=== PATIENT | female | born 1975 | race Caucasian/White ===

== ENCOUNTER → 2016-07-05 | Outpatient (CLI) | payer OTHER | LOC: WI 09:32 | PROVIDERS: ATTEND Family Medicine | DX: Z12.31 Encounter for screening mammogram for malignant neoplasm of breast (principal) | CPT/HCPCS: 77063; G0202; 77067 ==

== ENCOUNTER → 2016-07-10 | Outpatient (CLI) | payer OTHER | LOC: WI 11:04 | PROVIDERS: ATTEND Family Medicine | DX: R92.0 Mammographic microcalcification found on diagnostic imaging of breast (principal) | CPT/HCPCS: G0204-52 ==

== ENCOUNTER → 2016-07-16 | Outpatient (CLI) | payer OTHER | LOC: RAD 07:26 | PROVIDERS: ATTEND Family Medicine | DX: R92.8 Other abnormal and inconclusive findings on diagnostic imaging of breast (principal) | CPT/HCPCS: A9576; C8906; 77059 ==

== ENCOUNTER → 2016-07-17 | Day surgery (SDC) | payer OTHER ==
[~2016-07-17] MED LIST: LIDOCAINE 1%/EPINEPHRINE INJ 20 ML VIAL ONE; LIDOCAINE 2% INJ (20 MG/ML) 20 ML MDV ONE
== END ==
LOC: RAD 11:17
PROVIDERS: ATTEND Family Medicine
PROC: 0HBT3ZX Excision of Right Breast, Percutaneous Approach, Diagnostic (ICD-10-PCS; principal; 2016-07-17)
DX: N64.1 Fat necrosis of breast (principal); N60.11 Diffuse cystic mastopathy of right breast; R92.0 Mammographic microcalcification found on diagnostic imaging of breast
CPT/HCPCS: 88305 ×2; 88342; 19081; J3490 ×2

== ENCOUNTER → 2017-09-25 | Outpatient (CLI) | payer OTHER ==
--- NOTE | 2017-09-25 18:25 | WOMENS IMAGING REPORT ---
EXAM DESCRIPTION: 3D DX MAMMO BILAT; U/S BREAST UNILAT LIMITED COMPLETED DATE/TIME: 09/25/2017 9:31 am; 09/25/2017 10:39 am REASON FOR STUDY: UNSPECIFIED LUMP; N63.10; RT BREAST LUMP N63.10 UNSPECIFIED LUMP IN THE RIGHT TOÑO AST, UNSPECIFIED PIOTR COMPARISON: Mammograms 01/13/2014, 04/04/2015, 07/05/2016, 07/10/2016, 07/17/2016 Stereotactic biopsy 07/17/2016 Bilateral breast MRI 07/16/2016 TECHNIQUE: Bilateral whole breast and bilateral implant displaced craniocaudal and mediolateral obli que mammograms and tomosynthesis, bilateral 90 mediolateral whole breast mammograms. Right breast ultrasound was also performed. LIMITATIONS: None. FINDINGS: RIGHT BREAST MASSES and CALCIFICATIONS: Stereotactic clip is present adjacent to previously biopsied benign calcif ications. About 3 cm inferior to the stereotactic clip, of the right breast 6 to 7 o'clock position lower inner quadrant, a well-circumscribed low-density 2 x 1 cm well-circumscribed mammographic nodul e is present with coarse dense benign appearing calcifications. This is in the area of patient's pal pable abnormality. ARCHITECTURAL DISTORTION: None. DEVELOPING DENSITY: None. ASYMMETRY: None noted. OTHER: No other significant findings. LEFT BREAST MASSES: No suspicious masses. CALCIFICATIONS: No new or suspicious calcifications. ARCHITECTURAL DISTORTION: None. DEVELOPING DENSITY: None. ASYMMETRY: None noted. OTHER: No other significant finding. Read with the assistance of CAD: .[facility] - R2 Cenova Version 1.3 .[facility] Imaging - R2 Cenova Version 1.3 .[facility] Imaging - R2 Cenova Version 2.4 .[facility] - R2 Cenova Version 2.4 .[facility] - R2 Credit Portfolio Manager Version 9.2 Right breast ultrasound: The patient was scanned by both myself as well as the technologist. Patient indicates a palpable nod ule right breast 6 to 7 o'clock position inframammary fold region. See states that this nodule has b een present for several years, since her breast implant surgery. At ultrasound, a 2 x 1 cm well-circ umscribed hypoechoic mass is present without internal color flow. This is immediately adjacent to th e saline implant correlates with the mammographic nodule seen today. Ultrasound-guided core biopsy o f this mass with post biopsy clip placement and limited follow-up post biopsy 90 mediolateral mammog abdifatah recommended. Prior breast MRI 07/16/2016 demonstrated this nodule at the edge of the implant, 2 x 1 cm in size without worrisome contrast enhancement. Today's imaging findings and their implications were discussed with the patient at length. She is ve ry concerned about the palpable nodule at the 6 to 7 o'clock position. Ultrasound-guided core biopsy with post biopsy clip placement of this nodule is recommended. Patient would also likely benefit fr om review of imaging findings, physical exam, and discussion with a dedicated breast surgeon, and I r ecommended Dr. Linda Vilchis to the patient. These findings were also discussed at length with Ramiro Marquis at [facility] in [place] 1100 hours 09/25/2017. IMPRESSION: Mammographic and sonographic nodule right breast 6 to 7 o'clock position. Ultrasound-gu ided core biopsy with post biopsy clip placement and follow-up 90 mediolateral mammogram is recommen ded. No mammographic or tomosynthesis evidence for malignancy left breast BREAST DENSITY: c. The breasts are heterogeneously dense, which may obscure small masses. BIRAD: 4A-Suspicious abnormality: Lesion which may require intervention with low suspicion for gracia roman. RECOMMENDATION: RECOMMENDED FOLLOW UP: Ultrasound-guided core biopsy, post biopsy clip placement and follow-up 90 mediolateral mammograms right breast SPECIFIC INTERVENTION/IMAGING/CONSULTATION RECOMMENDED:As above COMMUNICATION:Findings were discussed with the patient at the time of service. COMMENT: The patient has been notified of the results by letter per SA requirements. Additional no tification policies are in place for contacting patient with suspicious or incomplete findings. Quality ID #[id number]: The [employer] recommends an annual screening mammogram for women aged 40 years or over. This facility utilizes a reminder system to ensure that all patients receive reminder letters, and/or direct phone calls for appointments. This includes reminders for routine scr eening mammograms, diagnostic mammograms, or other Breast Imaging Interventions when appropriate. Th is patient will be placed in the appropriate reminder system. The [employer] (ACR) has developed recommendations for screening MRI of the breast s in certain patient populations, to be used in conjunction with mammography. Breast MRI surveillanc e may be appropriate for women with more than 20% lifetime risk of developing breast cancer as deter mined by genetic testing, significant family history of the disease, or history of mantle radiation f or Hodgkins Disease. ACR Practice Guidelines 2008. DBT Technology DBT is a type of tomographic mammography. With conventional mammography, overlapping breast tissue ma y make lesions difficult to detect, even with good compression. DBT uses an x-ray tube that rotates a round the breast, taking images at different angles. These images are then combined to create thin sl ices of the breast that the radiologist can view as a 3D reconstruction. The [place] unit can perform full-field digital mammograms (2D imaging); or DBT (3D imaging); or both, in a combination mode that quickly performs both the mammogram and the tomosynthesis scan while the breast is still compressed. PQRS 6045F: Fluoroscopic imaging is not utilized for breast tomosynthesis. TECHNICAL DOCUMENTATION: FINDING NUMBER: (1) ASSESSMENT: (1) JOB ID: [id number] [employer]- All Rights Reserved Reading location - IP/workstation name: [email or web address]
--- NOTE | 2017-09-30 15:51 | WOMENS IMAGING REPORT ---
EXAM DESCRIPTION: 3D DX MAMMO BILAT; U/S BREAST UNILAT LIMITED COMPLETED DATE/TIME: 09/25/2017 9:31 am; 09/25/2017 10:39 am REASON FOR STUDY: UNSPECIFIED LUMP; N63.10; RT BREAST LUMP N63.10 UNSPECIFIED LUMP IN THE RIGHT TOÑO AST, UNSPECIFIED PIOTR COMPARISON: Mammograms 01/13/2014, 04/04/2015, 07/05/2016, 07/10/2016, 07/17/2016 Stereotactic biopsy 07/17/2016 Bilateral breast MRI 07/16/2016 TECHNIQUE: Bilateral whole breast and bilateral implant displaced craniocaudal and mediolateral obli que mammograms and tomosynthesis, bilateral 90 mediolateral whole breast mammograms. Right breast ultrasound was also performed. LIMITATIONS: None. FINDINGS: RIGHT BREAST MASSES and CALCIFICATIONS: Stereotactic clip is present adjacent to previously biopsied benign calcif ications. About 3 cm inferior to the stereotactic clip, of the right breast 6 to 7 o'clock position lower inner quadrant, a well-circumscribed low-density 2 x 1 cm well-circumscribed mammographic nodul e is present with coarse dense benign appearing calcifications. This is in the area of patient's pal pable abnormality. ARCHITECTURAL DISTORTION: None. DEVELOPING DENSITY: None. ASYMMETRY: None noted. OTHER: No other significant findings. LEFT BREAST MASSES: No suspicious masses. CALCIFICATIONS: No new or suspicious calcifications. ARCHITECTURAL DISTORTION: None. DEVELOPING DENSITY: None. ASYMMETRY: None noted. OTHER: No other significant finding. Read with the assistance of CAD: .[facility] - R2 Cenova Version 1.3 .[facility] Imaging - R2 Cenova Version 1.3 .[facility] Imaging - R2 Cenova Version 2.4 .[facility] - R2 Cenova Version 2.4 .[facility] - R2 Swimming Coach Version 9.2 Right breast ultrasound: The patient was scanned by both myself as well as the technologist. Patient indicates a palpable nod ule right breast 6 to 7 o'clock position inframammary fold region. See states that this nodule has b een present for several years, since her breast implant surgery. At ultrasound, a 2 x 1 cm well-circ umscribed hypoechoic mass is present without internal color flow. This is immediately adjacent to th e saline implant correlates with the mammographic nodule seen today. Ultrasound-guided core biopsy o f this mass with post biopsy clip placement and limited follow-up post biopsy 90 mediolateral mammog abdifatah recommended. Prior breast MRI 07/16/2016 demonstrated this nodule at the edge of the implant, 2 x 1 cm in size without worrisome contrast enhancement. Today's imaging findings and their implications were discussed with the patient at length. She is ve ry concerned about the palpable nodule at the 6 to 7 o'clock position. Ultrasound-guided core biopsy with post biopsy clip placement of this nodule is recommended. Patient would also likely benefit fr om review of imaging findings, physical exam, and discussion with a dedicated breast surgeon, and I r ecommended Dr. Linda Vilchis to the patient. These findings were also discussed at length with Ramiro Marquis at [facility] in [place] 1100 hours 09/25/2017. IMPRESSION: Mammographic and sonographic nodule right breast 6 to 7 o'clock position. Ultrasound-gu ided core biopsy with post biopsy clip placement and follow-up 90 mediolateral mammogram is recommen ded. No mammographic or tomosynthesis evidence for malignancy left breast BREAST DENSITY: c. The breasts are heterogeneously dense, which may obscure small masses. BIRAD: 4A-Suspicious abnormality: Lesion which may require intervention with low suspicion for gracia roman. RECOMMENDATION: RECOMMENDED FOLLOW UP: Ultrasound-guided core biopsy, post biopsy clip placement and follow-up 90 mediolateral mammograms right breast SPECIFIC INTERVENTION/IMAGING/CONSULTATION RECOMMENDED:As above COMMUNICATION:Findings were discussed with the patient at the time of service. COMMENT: The patient has been notified of the results by letter per SA requirements. Additional no tification policies are in place for contacting patient with suspicious or incomplete findings. Quality ID #[id number]: The [employer] recommends an annual screening mammogram for women aged 40 years or over. This facility utilizes a reminder system to ensure that all patients receive reminder letters, and/or direct phone calls for appointments. This includes reminders for routine scr eening mammograms, diagnostic mammograms, or other Breast Imaging Interventions when appropriate. Th is patient will be placed in the appropriate reminder system. The [employer] (ACR) has developed recommendations for screening MRI of the breast s in certain patient populations, to be used in conjunction with mammography. Breast MRI surveillanc e may be appropriate for women with more than 20% lifetime risk of developing breast cancer as deter mined by genetic testing, significant family history of the disease, or history of mantle radiation f or Hodgkins Disease. ACR Practice Guidelines 2008. DBT Technology DBT is a type of tomographic mammography. With conventional mammography, overlapping breast tissue ma y make lesions difficult to detect, even with good compression. DBT uses an x-ray tube that rotates a round the breast, taking images at different angles. These images are then combined to create thin sl ices of the breast that the radiologist can view as a 3D reconstruction. The [place] unit can perform full-field digital mammograms (2D imaging); or DBT (3D imaging); or both, in a combination mode that quickly performs both the mammogram and the tomosynthesis scan while the breast is still compressed. PQRS 6045F: Fluoroscopic imaging is not utilized for breast tomosynthesis. TECHNICAL DOCUMENTATION: FINDING NUMBER: (1) ASSESSMENT: (1) JOB ID: [id number] [employer]- All Rights Reserved Reading location - IP/workstation name: [email or web address]
== END ==
LOC: WI 08:41
PROVIDERS: ATTEND Nurse Practitioner Family
DX: N63.14 Unspecified lump in the right breast, lower inner quadrant (principal)
CPT/HCPCS: 76642; 77066; G0279; 77062

== ENCOUNTER 2018-05-13 20:44 | Emergency (ER) | payer OTHER ==
[2018-05-13] MEDS ORDERED: ACETAMINOPHEN 325 MG TABLET PO ONE (22:16)
[2018-05-14] MEDS ORDERED: LIDOCAINE 1%/EPINEPHRINE INJ 20 ML VIAL INJ ONE
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
--- NOTE | 2018-05-14 00:56 | RADIOLOGY REPORT (SQ) ---
CLINICAL HISTORY: fall, head injury, slurred words COMPARISON: None. TECHNIQUE: CT HEAD WITHOUT IV CONTRAST on 05/14/2018 12:01 AM ROUSTABOUT HAND This exam was performed according to our departmental dose-optimization program, which includes automated exposure control, adjustment of the mA and/or kV according to patient size and/or use of iterative reconstruction technique. FINDINGS: There is no acute hemorrhage, mass effect or midline shift. Alvarado-white differentiation is preserved. There is no hydrocephalus. There is no significant volume loss for age. There is a laceration involving the right frontal scalp. The calvarium is intact. Orbits and globes are unremarkable. The paranasal sinuses are clear. Mastoid air cells are clear. IMPRESSION: No acute intracranial findings.
--- NOTE | 2018-05-14 00:58 | RADIOLOGY REPORT (SQ) ---
CLINICAL HISTORY: fall, pain COMPARISON: None. TECHNIQUE: XR HAND 3 OR MORE VIEWS 05/14/2018 12:00 AM CORROSION PREVENTION METAL SPRAYER FINDINGS: There is no fracture. Joint spaces are preserved. Soft tissues are unremarkable. IMPRESSION: No acute osseous findings.
[2018-05-14] MEDS ORDERED: OXYCODONE-ACETAMINOPHEN 5-325 MG TABLET PO ONE (01:22)
[2018-05-14] MEDS ORDERED: ONDANSETRON 4 MG TAB.RAPDIS PO ONE (01:22)
[2018-05-14 01:45] VITALS: BP 125/78
== END 2018-05-14 01:46 | disposition home or self-care (01) ==
LOC: ER 20:44
DX: S09.90XA Unspecified injury of head, initial encounter (principal); S69.92XA Unspecified injury of left wrist, hand and finger(s), initial encounter; S01.81XA Laceration without foreign body of other part of head, initial encounter; Y04.2XXA Assault by strike against or bumped into by another person, initial encounter
CPT/HCPCS: 99284; 73130; 70450; 12013; S0119; J3490